=== PATIENT | male | born 1950 | race Caucasian/White ===

== ENCOUNTER → 2024-03-31 16:45 | Outpatient (REF) | payer OTHER, SELFPAY | LOC: PAVMRI 16:45 | PROVIDERS: ATTENDING PHYSICIAN Orthopaedic Surgery; FAMILY PHYSICIAN Physician Assistant Medical | DX: M25.559 Pain in unspecified hip (principal); M54.50 Low back pain, unspecified | CPT/HCPCS: 72148; 73721 ==

== ENCOUNTER → 2024-06-08 14:31 | Outpatient (REF) | payer OTHER, SELFPAY | LOC: MRI 3T 14:31 | PROVIDERS: ATTENDING PHYSICIAN Surgery | DX: N40.2 Nodular prostate without lower urinary tract symptoms (principal) | CPT/HCPCS: 72197; A9575 ==

== ENCOUNTER → 2024-09-19 15:11 | Outpatient (REF) | payer OTHER, SELFPAY | LOC: RAD 15:11 | PROVIDERS: ATTENDING PHYSICIAN Specialist; FAMILY PHYSICIAN Physician Assistant Medical | DX: R80.1 Persistent proteinuria, unspecified (principal); I10 Essential (primary) hypertension | CPT/HCPCS: 76770 ==

== ENCOUNTER → 2024-11-11 07:18 | Outpatient (REF) | payer OTHER, SELFPAY | LOC: RAD 07:18 | PROVIDERS: ATTENDING PHYSICIAN Internal Medicine; FAMILY PHYSICIAN Physician Assistant Medical | DX: R22.41 Localized swelling, mass and lump, right lower limb (principal); I82.401 Acute embolism and thrombosis of unspecified deep veins of right lower extremity | CPT/HCPCS: 93971 ==